=== PATIENT | male | born 1955 | race Caucasian/White ===

== ENCOUNTER 2017-03-13 17:26 | Emergency (ER) | payer MEDICARE | END 2017-03-13 19:30 | disposition home or self-care (01) | LOC: ER 17:26 | DX: R21 Rash and other nonspecific skin eruption (principal); I10 Essential (primary) hypertension; F41.9 Anxiety disorder, unspecified; F32.9 Major depressive disorder, single episode, unspecified; F17.200 Nicotine dependence, unspecified, uncomplicated; Z88.5 Allergy status to narcotic agent; Z79.899 Other long term (current) drug therapy | CPT/HCPCS: 96372; J0696; J1100 ==